=== PATIENT | female | born 1980 | race Two or more races ===

== ENCOUNTER 2023-05-06 10:29 | Inpatient (IN) | payer SELFPAY ==
[~2023-05-06] VITALS: Ht 152.4 cm; Wt 76.6 kg
[2023-05-06] VITALS (8 sets, daily range): BP systolic 96–120; BP diastolic 53–66; PULSE 101–110; RESP 16–34; TEMP 97.8–99.5; O2SAT 96–99
[2023-05-06 12:27] LABS: Hematocrit 8.9 % (36.0-46.0)
[2023-05-06 12:29] LABS: Mean Corpuscular Hemoglobin 38.5 pg (28.0-32.0); Mean Corpuscular Hgb Conc. 34.7 g/dL (32.0-36.0); Mean Corpuscular Volume 110.9 fL (80.0-100.0); Red Cell Distribution Width 15.1 % (11.8-14.3)
[2023-05-06 12:34] LABS: Alanine Aminotransferase 31 U/L (7-40); Albumin 3.7 g/dL (3.2-4.8); Alkaline Phosphatase 101 U/L (46-116); Anion Gap 12 (5-15); Aspartate Aminotransferase 26 U/L (13-40); BUN/Creatinine Ratio 13.4 (10.0-20.0); Blood Urea Nitrogen 15 mg/dL (9-23); Calcium 7.6 mg/dL (8.5-10.1); Carbon Dioxide 22 mmol/L (20-30); Chloride 100 mmol/L (98-107); Glucose 141 mg/dL (74-106); Hemoglobin 3.1 g/dL (12.2-16.2); Potassium 2.8 mmol/L (3.5-5.1); Sodium 134 mmol/L (136-145); White Blood Cell 0.7 10^3/uL (4.4-10.8)
[2023-05-06 12:35] LABS: Bilirubin, Total 0.7 mg/dL (0.2-1.0); Total Protein 6.3 g/dL (5.7-8.2)
[2023-05-06 12:36] LABS: Band Neutrophils % (manual) 0; Basophils % (manual) 0 (0.0-2.0); Blast Cells 0; Eosinophils % (manual) 0 (0-7); INR 1.42 (0.9-1.15); Metamyelocytes % 0; Myelocytes % 0; Partial Thromboplastin Time 30.6 SEC (24.5-34.5); Promyelocytes % 0; Prothrombin Time 14.6 sec (9.3-11.8)
[2023-05-06 12:47] LABS: Lymphocytes % (manual) 83 (10.0-50.0); Monocytes % (manual) 4 (0-12); Reactive Lymphocytes 1
[2023-05-06 12:50] LABS: Anisocytosis Slight; Macrocytosis Moderate; Platelet Estimate Markedly Decreased
[2023-05-06] MEDS ORDERED: POTASSIUM CHL 20MEQ/100ML 100 ML IV ONE (13:15)
[2023-05-06] MEDS ORDERED: ONDANSETRON HCL 4 MG/2 ML VIAL IV PRN (13:45)
[2023-05-06 14:42] LABS: LDL Cholesterol 67 mg/dL (< 100); Triglycerides 124 mg/dL (< 150)
[2023-05-06 14:43] LABS: HDL Cholesterol 14 mg/dL (40-59)
[2023-05-06 14:44] LABS: Cholesterol 106 mg/dL (< 200)
[2023-05-06] MEDS: SODIUM CHLORIDE 0.9% 1,000 ML IV SCH (15:17)
[2023-05-06] MEDS ORDERED: IOHEXOL 300 MG/ML 100ML BOTTLE IJ ONE ×2 (16:24→19:55)
[2023-05-06 18:10] LABS: Urine Epithelial Cast None Seen /hpf (<5)
[2023-05-06 18:28] LABS: COVID19 ANTIGEN SOFIA FIA NEGATIVE (NEGATIVE); Rapid Influenza A Negative (Negative); Rapid Influenza B Negative (Negative)
[2023-05-06 18:36] LABS: Urine Bacteria NONE SEEN /hpf (None Seen); Urine Blood 2+ /uL (Negative); Urine Clarity Clear (Clear); Urine Color Colorless (Yellow); Urine Mucus FEW (None Seen); Urine Protein, UAD Negative (Negative); Urine Specific Gravity 1.008 (1.001-1.035); Urine Urobilinogen Normal (Negative); Urine WBC 2 /hpf (0 - 5); Urine pH 5.5 (5.0-8.0)
[2023-05-06 18:45] LABS: Amphetamine Screen, Urine Neg (NEGATIVE); Barbiturate Scree,Urine Neg (NEGATIVE); Benzodiazephine Screen, Urine Neg (NEGATIVE); Cannabinoid Screen, Urine Neg (NEGATIVE); Cocaine Screen, Urine Neg (NEGATIVE); Opiate Scree,Urine Neg (NEGATIVE); Phencyclidine Screen, Urine Neg (NEGATIVE)
[2023-05-06 22:05] LABS: Hematocrit 16.5 % (36.0-46.0)
[2023-05-06 22:09] LABS: Hemoglobin 5.7 g/dL (12.2-16.2)
[2023-05-07] VITALS (14 sets, daily range): BP systolic 100–153; BP diastolic 57–81; PULSE 98–125; RESP 16–28; TEMP 98.7–103.1; O2SAT 93–100
[2023-05-07] MEDS: ACETAMINOPHEN 325 MG TAB PO PRN ×3 (00:33→13:33)
[2023-05-07] MEDS ORDERED: IBUPROFEN 600 MG TAB PO ONE (01:30)
[2023-05-07] MEDS: SODIUM CHLORIDE 0.9% 1,000 ML IV SCH ×2 (06:50→23:05)
[2023-05-07 09:41] LABS: Basophils # (auto) 0 10 ^3/uL (0-0.2); Eosinophils # (auto) 0 10 ^3/uL (0-0.8); Hemoglobin 8.5 g/dL (12.2-16.2); Mean Corpuscular Hemoglobin 32.9 pg (28.0-32.0); Monocytes # (auto) 0.1 10 ^3/uL (0-1.3); Red Blood Cells 2.59 10^6/uL (4.0-5.20)
[2023-05-07 09:45] LABS: Basophils % (auto) 1.3 % (0.0-2.0); Eosinophils % (auto) 0.8 % (0.0-7.0); Hematocrit 24.8 % (36.0-46.0); Lymphocytes # (auto) 0.3 10 ^3/uL (0.4-5.4); Mean Corpuscular Hgb Conc. 34.4 g/dL (32.0-36.0); Mean Corpuscular Volume 95.7 fL (80.0-100.0); Monocytes % (auto) 14.3 % (0.0-12.0); Neutrophils # (auto) 0.1 10 ^3/uL (1.6-8.6); Neutrophils % (auto) 11.2 % (37.0-80.0); Nucleated Red Blood Cells % 0.6 %; Red Cell Distribution Width 15.5 % (11.8-14.3)
[2023-05-07 10:12] LABS: Alanine Aminotransferase 26 U/L (7-40); Albumin 3.6 g/dL (3.2-4.8); Alkaline Phosphatase 108 U/L (46-116); Anion Gap 10 (5-15); Aspartate Aminotransferase 24 U/L (13-40); BUN/Creatinine Ratio 8.6 (10.0-20.0); Bilirubin, Total 1.4 mg/dL (0.2-1.0); Blood Urea Nitrogen 6 mg/dL (9-23); Calcium 8.2 mg/dL (8.5-10.1); Carbon Dioxide 22 mmol/L (20-30); Chloride 105 mmol/L (98-107); Glucose 147 mg/dL (74-106); Potassium 2.7 mmol/L (3.5-5.1); Sodium 137 mmol/L (136-145); Total Protein 6.3 g/dL (5.7-8.2)
[2023-05-07 10:15] LABS: Thyroid Stimulating Hormone 1.71 uIU/mL (0.55-4.78)
[2023-05-07 10:28] LABS: Lymphocytes % (auto) 72.4 % (10.0-50.0)
[2023-05-07 10:31] LABS: Platelet Estimate Markedly Decreased
[2023-05-07 10:33] LABS: White Blood Cell 0.5 10^3/uL (4.4-10.8)
[2023-05-07 10:36] LABS: Wright Stain Ready for Review
[2023-05-07] MEDS ORDERED: fentaNYL CITRATE 100 MCG/2 ML VL IV ONE (11:45)
[2023-05-07] MEDS ORDERED: MIDAZOLAM HCL 2MG/2ML 2ml VIAL (1mg/ml) IV ONE (11:45)
[2023-05-07] MEDS ORDERED: LIDOCAINE 2%HCL (LOCAL ANESTH.) INJ 10ml MDV ONE (12:29)
[2023-05-07] MEDS: POTASSIUM CHL 20MEQ/100ML 100 ML IV SCH ×2 (14:00→18:00)
[2023-05-07] MEDS ORDERED: HYDROcodone-ACET 5/325MG TAB PO ONE ×2 (21:00→21:15)
[2023-05-08] VITALS (12 sets, daily range): BP systolic 116–156; BP diastolic 22–75; PULSE 96–127; RESP 16–40; TEMP 98–102.4; O2SAT 91–99
[2023-05-08] MEDS: ACETAMINOPHEN 325 MG TAB PO PRN ×2 (04:50→12:45)
[2023-05-08 06:52] LABS: Basophils # (auto) 0 10 ^3/uL (0-0.2); Eosinophils # (auto) 0 10 ^3/uL (0-0.8); Lymphocytes # (auto) 0.5 10 ^3/uL (0.4-5.4); Monocytes # (auto) 0.1 10 ^3/uL (0-1.3); Neutrophils # (auto) 0 10 ^3/uL (1.6-8.6)
[2023-05-08 06:55] LABS: Basophils % (auto) 0.2 % (0.0-2.0); Eosinophils % (auto) 0.1 % (0.0-7.0); Hematocrit 23.8 % (36.0-46.0); Hemoglobin 8.4 g/dL (12.2-16.2); Mean Corpuscular Hemoglobin 34.2 pg (28.0-32.0); Mean Corpuscular Hgb Conc. 35.2 g/dL (32.0-36.0); Mean Corpuscular Volume 97.1 fL (80.0-100.0); Nucleated Red Blood Cells % 0.1 %; Red Blood Cells 2.45 10^6/uL (4.0-5.20); Red Cell Distribution Width 15.6 % (11.8-14.3)
[2023-05-08 07:06] LABS: Haptoglobin 548 mg/dL (42-296)
[2023-05-08 07:07] LABS: Anion Gap 11 (5-15); Carbon Dioxide 20 mmol/L (20-30); Chloride 107 mmol/L (98-107); Potassium 2.6 mmol/L (3.5-5.1); Sodium 138 mmol/L (136-145)
[2023-05-08 07:09] LABS: Calcium 7.7 mg/dL (8.5-10.1)
[2023-05-08 07:13] LABS: BUN/Creatinine Ratio 7.7 (10.0-20.0); Blood Urea Nitrogen 5 mg/dL (9-23); Glucose 109 mg/dL (74-106)
[2023-05-08 07:29] LABS: Lymphocytes % (auto) 74.2 % (10.0-50.0); Monocytes % (auto) 19.5 % (0.0-12.0)
[2023-05-08 07:33] LABS: Platelet Estimate Markedly Decreased
[2023-05-08 07:40] LABS: White Blood Cell 0.7 10^3/uL (4.4-10.8)
[2023-05-08] MEDS ORDERED: POTASSIUM CHL 20 Meq TABLET PO ONE (08:00)
[2023-05-08 08:06] LABS: Thyroxine (T4) 7.4 ug/dL (4.5-12.0)
[2023-05-08 09:06] LABS: Anti-Nuclear Antibody Direct Positive (Negative)
[2023-05-08] MEDS ORDERED: POTASSIUM CHLORIDE 60 MEQ, LIDOCAINE 1% (LOCAL ANESTH.) 6 ML in SODIUM CHL 0.9% 500 ML IV ONE (09:30)
[2023-05-08] MEDS ORDERED: CALCIUM GLUC 1,000mg/50ml-NS 50 ML IV ONE (09:30)
[2023-05-08] MEDS ORDERED: PIPERACILLIN-TAZO 4.5GM 100 ML IV ONE (09:45)
[2023-05-08] MEDS ORDERED: diphenhdrAMINE HCL 25 MG CAP PO PRN (10:00)
[2023-05-08 11:03] LABS: Anti-dsDNA Antibody <1 IU/mL (0-9); RNP Antibody <0.2 AI (0.0-0.9); Sjogren's Anti-SS-A Antibody >8.0 AI (0.0-0.9); Sjogren's Anti-SS-B Antibody <0.2 AI (0.0-0.9); Smith Antibody <0.2 AI (0.0-0.9)
[2023-05-08] MEDS: diphenhdrAMINE HCL 50 MG/1 ML VL IV PRN (12:21)
[2023-05-08] MEDS: IBUPROFEN 600 MG TAB PO PRN (14:55)
[2023-05-08] MEDS: SODIUM CHLORIDE 0.9% 1,000 ML IV SCH (15:45)
[2023-05-08] MEDS: PIPERACILLIN-TAZO 4.5GM 100 ML IV SCH (17:41)
[2023-05-08] MEDS: FILGRASTIM(TBO) 480 MCG/0.8 ML SYRG SC SCH (18:00)
[2023-05-09] VITALS (8 sets, daily range): BP systolic 121–135; BP diastolic 71–76; PULSE 98–135; RESP 16–36; TEMP 98–103; O2SAT 94–97
[2023-05-09] MEDS: PIPERACILLIN-TAZO 4.5GM 100 ML IV SCH ×3 (01:27→18:04)
[2023-05-09] MEDS: ACETAMINOPHEN 325 MG TAB PO PRN ×2 (04:20→12:54)
[2023-05-09 04:59] LABS: Basophils # (auto) 0 10 ^3/uL (0-0.2); Eosinophils # (auto) 0 10 ^3/uL (0-0.8); Monocytes # (auto) 0.2 10 ^3/uL (0-1.3); Neutrophils # (auto) 0.1 10 ^3/uL (1.6-8.6)
[2023-05-09 05:02] LABS: Basophils % (auto) 0.2 % (0.0-2.0); Eosinophils % (auto) 0.3 % (0.0-7.0); Hematocrit 22.8 % (36.0-46.0); Lymphocytes # (auto) 0.7 10 ^3/uL (0.4-5.4); Mean Corpuscular Hgb Conc. 35.3 g/dL (32.0-36.0); Mean Corpuscular Volume 96.5 fL (80.0-100.0); Neutrophils % (auto) 5.9 % (37.0-80.0); Red Blood Cells 2.36 10^6/uL (4.0-5.20); Red Cell Distribution Width 15.5 % (11.8-14.3)
[2023-05-09 05:34] LABS: Alanine Aminotransferase 23 U/L (7-40); Alkaline Phosphatase 102 U/L (46-116); Anion Gap 11 (5-15); BUN/Creatinine Ratio 7.5 (10.0-20.0); Blood Urea Nitrogen 5 mg/dL (9-23); Calcium 8.1 mg/dL (8.7-10.4); Carbon Dioxide 20 mmol/L (20-30); Chloride 104 mmol/L (98-107); Glucose 111 mg/dL (74-106); Potassium 2.8 mmol/L (3.5-5.1); Sodium 135 mmol/L (136-145)
[2023-05-09 05:35] LABS: Albumin 3.3 g/dL (3.2-4.8); Aspartate Aminotransferase 17 U/L (13-40)
[2023-05-09 05:36] LABS: Bilirubin, Total 1.3 mg/dL (0.2-1.0); Total Protein 5.9 g/dL (5.7-8.2)
[2023-05-09 06:09] LABS: CRP High Sensitivity 15.91 mg/dL (<1.0)
[2023-05-09 07:01] LABS: Lymphocytes % (auto) 73.5 % (10.0-50.0); Monocytes % (auto) 20.1 % (0.0-12.0)
[2023-05-09 07:03] LABS: White Blood Cell 0.9 10^3/uL (4.4-10.8)
[2023-05-09 08:19] LABS: Platelet Estimate Decreased
[2023-05-09] MEDS: SODIUM CHLORIDE 0.9% 1,000 ML IV SCH (08:25)
[2023-05-09 08:26] LABS: Wright Stain Ready for Review
[2023-05-09] MEDS ORDERED: CALCIUM GLUC 1,000mg/50ml-NS 50 ML IV ONE (08:30)
[2023-05-09] MEDS ORDERED: POTASSIUM CHLORIDE 60 MEQ, LIDOCAINE 1% (LOCAL ANESTH.) 6 ML in SODIUM CHL 0.9% 500 ML IV ONE (08:30)
[2023-05-09 09:49] LABS: Hepatitis B Surface Antigen Negative (Negative)
[2023-05-09] MEDS: FILGRASTIM(TBO) 480 MCG/0.8 ML SYRG SC SCH (10:08)
[2023-05-09 10:10] LABS: Hepatitis A Ab IgM Negative; Hepatitis B Core IgM Negative
[2023-05-09 10:11] LABS: Hepatitis C Antibody Negative (Negative)
[2023-05-09] MEDS: diphenhdrAMINE HCL 50 MG/1 ML VL IV PRN (11:20)
[2023-05-09] MEDS: IBUPROFEN 600 MG TAB PO PRN (11:21)
[2023-05-10] VITALS (7 sets, daily range): BP systolic 125–141; BP diastolic 66–84; PULSE 97–114; RESP 16–20; TEMP 97.2–100.3; O2SAT 93–98
[2023-05-10] MEDS: SODIUM CHLORIDE 0.9% 1,000 ML IV SCH ×2 (01:29→18:12)
[2023-05-10] MEDS: PIPERACILLIN-TAZO 4.5GM 100 ML IV SCH ×3 (01:30→18:11)
[2023-05-10 06:56] LABS: Hemoglobin 7.7 g/dL (12.2-16.2)
[2023-05-10 06:59] LABS: Mean Corpuscular Hemoglobin 33.6 pg (28.0-32.0); Mean Corpuscular Hgb Conc. 34.8 g/dL (32.0-36.0); Mean Corpuscular Volume 96.6 fL (80.0-100.0); Red Blood Cells 2.28 10^6/uL (4.0-5.20); Red Cell Distribution Width 15.9 % (11.8-14.3)
[2023-05-10 07:08] LABS: Alanine Aminotransferase 25 U/L (7-40); Albumin 3.3 g/dL (3.2-4.8); Alkaline Phosphatase 141 U/L (46-116); Anion Gap 10 (5-15); Aspartate Aminotransferase 28 U/L (13-40); Calcium 8.2 mg/dL (8.5-10.1); Carbon Dioxide 22 mmol/L (20-30); Chloride 106 mmol/L (98-107); Glucose 100 mg/dL (74-106); Potassium 2.8 mmol/L (3.5-5.1); Sodium 138 mmol/L (136-145)
[2023-05-10 07:09] LABS: Bilirubin, Total 1.2 mg/dL (0.2-1.0); Total Protein 5.9 g/dL (5.7-8.2)
[2023-05-10 07:15] LABS: White Blood Cell 1.4 10^3/uL (4.4-10.8)
[2023-05-10 07:16] LABS: Band Neutrophils % (manual) 0; Basophils % (manual) 0 (0.0-2.0); Blast Cells 0; Eosinophils % (manual) 0 (0-7); Metamyelocytes % 0; Myelocytes % 0; Promyelocytes % 0; Reactive Lymphocytes 0
[2023-05-10 07:17] LABS: CRP High Sensitivity 12.98 mg/dL (<1.0)
[2023-05-10 07:19] LABS: BUN/Creatinine Ratio 7.4 (10.0-20.0); Blood Urea Nitrogen < 5 mg/dL (9-23)
[2023-05-10] MEDS ORDERED: POTASSIUM CHLORIDE 80 MEQ, LIDOCAINE 1% (LOCAL ANESTH.) 6 ML in SODIUM CHL 0.9% 500 ML IV ONE (09:00)
[2023-05-10 11:07] LABS: CCP IgG/IgA Antibody 5 units (0-19)
[2023-05-10] MEDS: FILGRASTIM(TBO) 480 MCG/0.8 ML SYRG SC SCH (11:24)
[2023-05-10] MEDS: ACETAMINOPHEN 325 MG TAB PO PRN (13:02)
[2023-05-10 14:13] LABS: Lymphocytes % (manual) 80 (10.0-50.0); Monocytes % (manual) 20 (0-12); Platelet Estimate Decreased
[2023-05-10] MEDS: VANCOMYCIN HCL 125 MG CAP PO SCH ×2 (18:11→21:47)
[2023-05-11] VITALS (7 sets, daily range): BP systolic 116–139; BP diastolic 68–83; PULSE 80–136; RESP 14–68; TEMP 98.3–99.9; O2SAT 94–100
[2023-05-11] MEDS: PIPERACILLIN-TAZO 4.5GM 100 ML IV SCH ×3 (01:50→18:36)
[2023-05-11 05:39] LABS: Hemoglobin 7.5 g/dL (12.2-16.2); Red Cell Distribution Width 15.6 % (11.8-14.3); White Blood Cell 2.1 10^3/uL (4.4-10.8)
[2023-05-11 05:42] LABS: Hematocrit 21.5 % (36.0-46.0); Mean Corpuscular Hemoglobin 33.8 pg (28.0-32.0); Mean Corpuscular Hgb Conc. 34.9 g/dL (32.0-36.0); Mean Corpuscular Volume 96.9 fL (80.0-100.0); Red Blood Cells 2.22 10^6/uL (4.0-5.20)
[2023-05-11] MEDS: VANCOMYCIN HCL 125 MG CAP PO SCH ×4 (05:50→21:12)
[2023-05-11 05:52] LABS: Alanine Aminotransferase 33 U/L (7-40); Albumin 3.1 g/dL (3.2-4.8); Alkaline Phosphatase 167 U/L (46-116); Anion Gap 7 (5-15); Aspartate Aminotransferase 36 U/L (13-40); Carbon Dioxide 24 mmol/L (20-30); Chloride 109 mmol/L (98-107); Glucose 107 mg/dL (74-106); Potassium 3.5 mmol/L (3.5-5.1); Sodium 140 mmol/L (136-145)
[2023-05-11 05:53] LABS: Bilirubin, Total 0.8 mg/dL (0.2-1.0); Total Protein 5.6 g/dL (5.7-8.2)
[2023-05-11 06:01] LABS: Blood Urea Nitrogen < 5 mg/dL (9-23); CRP High Sensitivity 7.68 mg/dL (<1.0)
[2023-05-11 07:13] LABS: Band Neutrophils % (manual) 0; Basophils % (manual) 0 (0.0-2.0); Blast Cells 0; Eosinophils % (manual) 0 (0-7); Metamyelocytes % 0; Myelocytes % 0; Promyelocytes % 0; Reactive Lymphocytes 0
[2023-05-11 08:06] LABS: Complement C3 174 mg/dL (82-167)
[2023-05-11 08:09] LABS: Lymphocytes % (manual) 82 (10.0-50.0); Monocytes % (manual) 3 (0-12); Platelet Estimate Decreased
[2023-05-11] MEDS: FILGRASTIM(TBO) 480 MCG/0.8 ML SYRG SC SCH (10:18)
[2023-05-11] MEDS ORDERED: IRON SUCROSE COMPLEX 100 ML IV SCH (12:30)
[2023-05-11] MEDS ORDERED: IRON SUCROSE COMPLEX 100 ML IV ONE (13:15)
[2023-05-12] VITALS (13 sets, daily range): BP systolic 127–146; BP diastolic 70–83; PULSE 91–106; RESP 18–22; TEMP 97.7–99.2; O2SAT 90–98
[2023-05-12] MEDS: PIPERACILLIN-TAZO 4.5GM 100 ML IV SCH ×3 (01:36→18:08)
[2023-05-12] MEDS: VANCOMYCIN HCL 125 MG CAP PO SCH ×4 (05:16→22:32)
[2023-05-12 06:25] LABS: Mean Corpuscular Volume 96.9 fL (80.0-100.0); White Blood Cell 2.6 10^3/uL (4.4-10.8)
[2023-05-12 06:27] LABS: Hematocrit 21.9 % (36.0-46.0); Hemoglobin 7.6 g/dL (12.2-16.2); Mean Corpuscular Hemoglobin 33.4 pg (28.0-32.0); Mean Corpuscular Hgb Conc. 34.5 g/dL (32.0-36.0); Red Blood Cells 2.26 10^6/uL (4.0-5.20); Red Cell Distribution Width 15.2 % (11.8-14.3)
[2023-05-12 06:34] LABS: Band Neutrophils % (manual) 0; Basophils % (manual) 0 (0.0-2.0); Blast Cells 0; Eosinophils % (manual) 0 (0-7); Promyelocytes % 0; Reactive Lymphocytes 0
[2023-05-12 06:46] LABS: Alanine Aminotransferase 48 U/L (7-40); Albumin 3.4 g/dL (3.2-4.8); Alkaline Phosphatase 175 U/L (46-116); Anion Gap 8 (5-15); Aspartate Aminotransferase 43 U/L (13-40); Calcium 8.5 mg/dL (8.5-10.1); Carbon Dioxide 26 mmol/L (20-30); Chloride 110 mmol/L (98-107); Glucose 95 mg/dL (74-106); Sodium 144 mmol/L (136-145); Total Protein 6.2 g/dL (5.7-8.2)
[2023-05-12 06:53] LABS: BUN/Creatinine Ratio 7.2 (10.0-20.0); Blood Urea Nitrogen < 5 mg/dL (9-23)
[2023-05-12 06:57] LABS: CRP High Sensitivity 4.86 mg/dL (<1.0)
[2023-05-12] MEDS ORDERED: POTASSIUM CHLORIDE 80 MEQ, LIDOCAINE 1% (LOCAL ANESTH.) 6 ML in SODIUM CHL 0.9% 500 ML IV ONE (08:30)
[2023-05-12] MEDS: FILGRASTIM(TBO) 480 MCG/0.8 ML SYRG SC SCH (10:34)
[2023-05-12] MEDS: ACETAMINOPHEN 325 MG TAB PO PRN (10:40)
[2023-05-12 15:03] LABS: Lymphocytes % (manual) 75 (10.0-50.0); Metamyelocytes % 1; Monocytes % (manual) 22 (0-12); Myelocytes % 1
[2023-05-12 15:07] LABS: Platelet Estimate Markedly Decreased
[2023-05-13] MEDS: PIPERACILLIN-TAZO 4.5GM 100 ML IV SCH ×2 (01:37→11:12)
[2023-05-13 05:00] VITALS: BP 132/81; PULSE 105; RESP 20; TEMP 99; O2SAT 95
[2023-05-13] MEDS: VANCOMYCIN HCL 125 MG CAP PO SCH ×2 (05:08→12:43)
[2023-05-13 05:29] LABS: Hemoglobin 7.4 g/dL (12.2-16.2); Mean Corpuscular Hgb Conc. 34.6 g/dL (32.0-36.0); Red Blood Cells 2.21 10^6/uL (4.0-5.20)
[2023-05-13 05:31] LABS: Hematocrit 21.3 % (36.0-46.0); Mean Corpuscular Hemoglobin 33.3 pg (28.0-32.0); Mean Corpuscular Volume 96.2 fL (80.0-100.0); Red Cell Distribution Width 16.2 % (11.8-14.3)
[2023-05-13 05:56] LABS: Alanine Aminotransferase 59 U/L (7-40); Alkaline Phosphatase 168 U/L (46-116); Anion Gap 8 (5-15); Basophils % (manual) 0 (0.0-2.0); Blast Cells 0; Calcium 8.2 mg/dL (8.7-10.4); Carbon Dioxide 24 mmol/L (20-30); Chloride 109 mmol/L (98-107); Eosinophils % (manual) 0 (0-7); Glucose 102 mg/dL (74-106); Magnesium 1.8 mg/dL (1.6-2.6); Metamyelocytes % 0; Myelocytes % 0; Potassium 3.4 mmol/L (3.5-5.1); Promyelocytes % 0; Reactive Lymphocytes 0; Sodium 141 mmol/L (136-145)
[2023-05-13 05:57] LABS: Albumin 3.4 g/dL (3.2-4.8); Aspartate Aminotransferase 45 U/L (13-40); Bilirubin, Total 0.7 mg/dL (0.2-1.0); Total Protein 6.4 g/dL (5.7-8.2)
[2023-05-13 06:13] LABS: BUN/Creatinine Ratio 7.6 (10.0-20.0); Blood Urea Nitrogen < 5 mg/dL (9-23)
[2023-05-13 08:00] VITALS: PULSE 121; RESP 18; O2SAT 95
[2023-05-13] MEDS ORDERED: POTASSIUM CHLORIDE 60 MEQ, LIDOCAINE 1% (LOCAL ANESTH.) 6 ML in SODIUM CHL 0.9% 500 ML IV ONE (08:30)
[2023-05-13] MEDS ORDERED: CALCIUM GLUC 1,000mg/50ml-NS 50 ML IV ONE (08:30)
[2023-05-13 08:40] LABS: Band Neutrophils % (manual) 1; Lymphocytes % (manual) 58 (10.0-50.0); Monocytes % (manual) 38 (0-12)
[2023-05-13 08:46] LABS: Platelet Estimate Decreased
[2023-05-13 09:01] VITALS: BP 129/76; PULSE 107; RESP 19; TEMP 98.9; O2SAT 96
[2023-05-13] MEDS: FILGRASTIM(TBO) 480 MCG/0.8 ML SYRG SC SCH (11:14)
[2023-05-13 13:07] VITALS: BP 128/72; PULSE 104; RESP 17; TEMP 98.9; O2SAT 94
== END 2023-05-13 13:50 | disposition home or self-care (01) | DRG 834 ==
LOC: ER 10:29 → OVERFLOW 13:56 → EAST 23:56 → TELE-EAST 05-08 17:54
PROVIDERS: ADMIT Internal Medicine; ATTEND Internal Medicine
PROC: 30233N1 Transfusion of Nonautologous Red Blood Cells into Peripheral Vein, Percutaneous Approach (ICD-10-PCS; 2023-05-06)
PROC: 079T3ZX Drainage of Bone Marrow, Percutaneous Approach, Diagnostic (ICD-10-PCS; principal; 2023-05-07)
PROC: 30233R1 Transfusion of Nonautologous Platelets into Peripheral Vein, Percutaneous Approach (ICD-10-PCS; 2023-05-08)
PROC: 05HA33Z Insertion of Infusion Device into Left Brachial Vein, Percutaneous Approach (ICD-10-PCS; 2023-05-09)
PROC: B54NZZA Ultrasonography of Left Upper Extremity Veins, Guidance (ICD-10-PCS; 2023-05-09)
DX: C92.00 Acute myeloblastic leukemia, not having achieved remission (principal); N17.0 Acute kidney failure with tubular necrosis; A04.72 Enterocolitis due to Clostridium difficile, not specified as recurrent; D61.818 Other pancytopenia; N39.0 Urinary tract infection, site not specified; R65.10 Systemic inflammatory response syndrome (SIRS) of non-infectious origin without acute organ dysfunction; N92.0 Excessive and frequent menstruation with regular cycle; D50.0 Iron deficiency anemia secondary to blood loss (chronic); E87.6 Hypokalemia; D53.9 Nutritional anemia, unspecified; Z82.49 Family history of ischemic heart disease and other diseases of the circulatory system; D50.9 Iron deficiency anemia, unspecified; B96.20 Unspecified Escherichia coli [E. coli] as the cause of diseases classified elsewhere; Z20.822 Contact with and (suspected) exposure to COVID-19
CPT/HCPCS: 10005; 36415; 71045; 71046; 72192; 74178; 76856; 77012; 80048; 80053; 80061; 80074; 80307; 81001; 83010; 83036; 83605; 83615; 83735; 84436; 84443; 84702; 85007; 85014; 85018; 85025; 85027; 85045; 85049; 85610; 85730; 86038; 86141; 86160; 86200; 86703; 86850; 86880; 86900; 86901; 86920; 87040; 87086; 87088; 87186; 87426; 87493; 87804; G0378; J1447; J1756; J2001; J2250; J2543; J3480